=== PATIENT | male | born 1990 | race Caucasian/White ===

== ENCOUNTER 2021-10-25 02:47 | Emergency (ER) | payer OTHER ==
[~2021-10-25] VITALS: Ht 170.2 cm; Wt 80.0 kg
[~2021-10-25 02:47] MED LIST: TOPI25TA48; WARF5TAB76
[2021-10-25] MEDS ORDERED: MORPHINE SULFATE 4 MG/ML CPJ (NOT FOR IM USE) IV ONE (03:45)
[2021-10-25] MEDS ORDERED: ONDANSETRON HCL 4MG/2ML INJ IV ONE (03:45)
[2021-10-25 03:57] LABS: BASOPHILS % 0.2 % (0.0-2.0); EOSINOPHILS % 0.6 % (0.0-5.0); HEMATOCRIT. 42.9 % (42.0-52.0); HEMOGLOBIN. 15.6 g/dL (14.0-18.0); MEAN CORPUSCULAR HEMOGLOBIN 29.2 pg (28.0-32.0); MEAN CORPUSCULAR VOLUME 80.3 fL (80.0-94.0); MEAN PLATELET VOLUME 8.6 fl (7.4-10.4); MONOCYTES % 5.9 % (2.0-8.0); NEUTROPHILS % 66.3 % (40.0-76.0); PLATELET 226 x1000/uL (130-400); RED BLOOD CELL COUNT 5.34 mill/uL (4.7-6.1)
[2021-10-25 04:06] LABS: CHLORIDE 110 mEq/L (98-107)
[2021-10-25] MEDS ORDERED: IOHEXOL-300 100 ML BOTTLE ONE ×2 (05:06→07:18)
[2021-10-25] MEDS ORDERED: HYDR-4001 MT (06:56)
[2021-10-25 07:55] VITALS: BP 130/74
== END 2021-10-25 07:56 | disposition home or self-care (01) ==
LOC: ER 02:47
DX: S06.9X9A Unspecified intracranial injury with loss of consciousness of unspecified duration, initial encounter (principal); W18.30XA Fall on same level, unspecified, initial encounter; Y93.89 Activity, other specified; Y92.89 Other specified places as the place of occurrence of the external cause; Y99.8 Other external cause status
CPT/HCPCS: 36415; 70450; 70486; 71111; 72125; 73562; 74177; 80053; 83690; 85025; 96374; 96375; 99285; J2270; J2405; Q9967